=== PATIENT | male | born 2000 | race Hispanic/Latino ===

== ENCOUNTER 2022-09-05 11:36 | Emergency (ER) | payer OTHER ==
[~2022-09-05] VITALS: Ht 162.6 cm; Wt 93.9 kg
[2022-09-05 11:36] VITALS: BP 167/78
[2022-09-05] MEDS ORDERED: IBUP-1022 PO (13:44)
== END 2022-09-05 14:51 | disposition home or self-care (01) ==
LOC: M ED 11:36
DX: S60.221A Contusion of right hand, initial encounter (principal); W22.09XA Striking against other stationary object, initial encounter; Y92.009 Unspecified place in unspecified non-institutional (private) residence as the place of occurrence of the external cause; Y93.89 Activity, other specified; Z79.1 Long term (current) use of non-steroidal anti-inflammatories (NSAID)